=== PATIENT | female | born 1975 | race Asian ===

== ENCOUNTER 2025-01-07 07:21 | Day surgery (SDC) | payer OTHER ==
[~2025-01-07] VITALS: Ht 144.8 cm; Wt 44.5 kg
[~2025-01-07 07:21] MED LIST: DOCUSATE; FISH OIL1000 MG PO; IRON325 M1 PO; LEVOTHYROXINE25 MC1 PO; PRENATA8 PO; VITAMIN C500 M6 PO
[2025-01-07] MEDS ORDERED: FAMOTIDINE 10MG/ML 2ML SDV IV ONE (07:26)
[2025-01-07] MEDS ORDERED: LACTATED RINGER'S 1,000 ML IV ONE (07:26)
[2025-01-07] MEDS ORDERED: ABILIFY10 MG PO (07:48)
[2025-01-07] MEDS ORDERED: SYNTHROID25 MCG PO (07:48)
[2025-01-07] MEDS ORDERED: STERILE WATER FOR IRRIGATION 1,000 ML BTL IR ONE (08:57)
[2025-01-07 09:43] VITALS: BP 116/66
[2025-01-07] MEDS ORDERED: PROPOFOL 200 MG/20 ML VIAL IV ONE (14:20)
[2025-01-07] MEDS ORDERED: GLYCOPYRROLATE 0.2 MG/ML IV ONE (14:20)
[2025-01-07] MEDS ORDERED: LIDOCAINE HCL 2% 2ML SDV IV ONE (14:20)
== END 2025-01-07 09:48 | disposition home or self-care (01) | DRG 951 ==
LOC: ENDO 07:21
PROVIDERS: ATTEND Surgery
PROC: 0DJD8ZZ Inspection of Lower Intestinal Tract, Via Natural or Artificial Opening Endoscopic (ICD-10-PCS; principal; 2025-01-07)
DX: Z12.11 Encounter for screening for malignant neoplasm of colon (principal); K64.8 Other hemorrhoids
CPT/HCPCS: J1596